=== PATIENT | female | born 1955 | race Caucasian/White ===

== ENCOUNTER 2024-05-04 09:20 | Day surgery (SDC) | payer MEDICARE, BC ==
[2024-05-04] MEDS: Polymyxin B/Trimethoprim 10 ML Bottle EYELF SCH (09:59)
[2024-05-04] MEDS: Brimonidine 0.2% Ophth Soln 5 ML Bottle EYELF SCH (10:05)
[2024-05-04] MEDS: Phenylephrine 2.5% Ophth Soln 2 ML Bot EYELF SCH (10:10)
[2024-05-04] MEDS: Tropicamide 1% Ophth Soln 3 ML Bottle EYELF SCH (10:15)
[2024-05-04] MEDS: Tetracaine HCl/PF 0.5% 4 ML Bottle EYEBOTH SCH (11:21)
[2024-05-04] MEDS: Lidocaine 1% PF 2 ML SDV INJECT SCH (11:37)
[2024-05-04] MEDS: Cefuroxime 10 MG/ML SYRINGE EYELF SCH (11:53)
[2024-05-04] MEDS: Pilocarpine 4% Ophth Soln 15 ML Bot EYELF SCH (11:54)
[2024-05-04 12:13] VITALS: BP 141/94; PULSE 78
== END 2024-05-04 12:04 | disposition home or self-care (01) ==
LOC: JD.SDS 09:20
PROVIDERS: ATTEND Ophthalmology
DX: H25.812 Combined forms of age-related cataract, left eye (principal); H52.31 Anisometropia; I10 Essential (primary) hypertension; E78.00 Pure hypercholesterolemia, unspecified; Z79.899 Other long term (current) drug therapy
CPT/HCPCS: 66984; A9270; J0697; 00142; J3490